=== PATIENT | female | born 2005 | race Caucasian/White ===

== ENCOUNTER 2023-02-10 11:55 | Emergency (ER) | payer BC, SELFPAY ==
[2023-02-10 12:09] VITALS: BP 119/71; PULSE 75; RESP 16; TEMP 36.5; O2SAT 100
--- NOTE | 2023-02-10 12:24 | ED.GENADULT ---
HPI - General Adult General Chief complaint: Extremity Problem,Nontraumatic Stated complaint: Thigh Pain Time Seen by Provider: 02/10/23 12:25 Source: patient, RN notes reviewed and old records reviewed Mode of arrival: ambulatory Limitations: no limitations History of Present Illness HPI narrative: 17 year old female who presents to [facility] with complaints of awakening this morning with pain from right hip area radiating to thigh with no known injury. Patient reports that she has right hip pain with movement and bending and has some palpable lateral and anterior thigh pain. 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 Patient reports no tingling or numbness to leg or foot, has full ROM of right hip and right knee. MD complaint: right hip and thigh pain Onset (ago): hour(s) (awoke with pain this morning) Location: right (hip and thigh) and lower extremity Severity scale (1-10): 5 Pain Consistency: other (with movement) Exacerbating factors: movement (bending, movement of hip) Treatments prior to arrival: other (Tylenol) Related Data Allergies Allergy/AdvReac Type Severity Reaction Status Date / Time No Known Allergies Allergy Verified 02/10/23 12:05 Review of Systems Review of Systems: CONSTITUTIONAL: Denies fever, chills, or sweats. EYES: Denies visual changes, redness, or discharge. ENT: Denies rhinorrhea, congestion, sore throat, or otalgia. CARDIOVASCULAR: Denies chest pain, palpitations, or edema. RESPIRATORY: Denies cough or dyspnea. GASTROINTESTINAL: Denies abdominal pain, nausea, vomiting, or diarrhea. GENITOURINARY: Denies dysuria or hematuria. SKIN: Denies rash or itching. MUSCULOSKELETAL: Denies back pain,positive for right hip pain radiating down lateral/anterior aspect of thigh no injury. NEUROLOGIC: Denies headache, numbness, or weakness. PSYCHIATRIC: Denies anxiety or depression. All systems reviewed & are unremarkable except as noted in HPI and below PMFSH Past Medical History Medical History (Updated 02/11/23 @ 07:46 by Kelsey Persaud NP) No pertinent past medical history Social History Social History (Updated 02/11/23 @ 07:44 by Kelsey Persaud NP) Smoking status: Current every day smoker Tobacco type: e-cigarettes/vaping Alcohol intake: never Substance use: never Living arrangements: with family Gender identity (if verbalized by the patient): Female Comments At time of signature, agree with nursing past medical, surgical, social and family history. There is no relevant family history pertinent to the presenting complaint Exam Narrative: GENERAL: Well-appearing, well-nourished, and in no acute distress. HEAD: Normocephalic, atraumatic. EYES: PERRLA and EOMI. ENT: Nares clear, no rhinorrhea or epistaxis. Mucous membranes moist.TM's normal throat pink with no swelling NECK: Supple.No lymphadenopathy CHEST: Clear to auscultation. No respiratory distress.no cough or any shortness of breath,SAO2 100% on room air HEART: Regular rate and rhythm. No murmur heard. Normal peripheral pulses. ABDOMEN: Soft, nontender, nondistended, normal active bowel sounds. EXTREMITIES: Normal range of motion. No edema. Pain to right hip with movement and bending with some radiation of pain to lateral and anterior thigh, no known injury,no redness, ecchymosis or any swelling noted of thigh but with some palpable tenderness. Patient demonstrated full ROM of right thigh and right knee, pulses strong right leg with no tingling or numbness reported. SKIN: Warm, dry, no rash. NEURO: No focal deficits. Alert and oriented x3. Course Course Emergency Course: Patient is aware of diagnosis, understands and agrees to treatment plan.? Anticipatory guidance given.? Patient agrees to follow-up as directed and is aware of reasons to seek care at the emergency department. Portions of this record may have been cr
== END 2023-02-10 12:47 | disposition home or self-care (01) ==
PROVIDERS: Emergency Provider Registered Nurse
DX: M76.31 Iliotibial band syndrome, right leg (principal); F17.290 Nicotine dependence, other tobacco product, uncomplicated
CPT/HCPCS: 99213; G0463